=== PATIENT | male | born 2000 | race Caucasian/White ===

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

== ENCOUNTER 2023-05-03 07:54 | Emergency (ER) | payer OTHER ==
[~2023-05-03] VITALS: Ht 177.8 cm; Wt 89.9 kg
[2023-05-03 07:55] VITALS: BP 115/62; TEMP 97.7; O2SAT 100
[2023-05-03] MEDS: CEPHALEXIN 500 MG CAP PO ONE (08:40)
[2023-05-03] MEDS: LIDOCAINE 1% MDV 20ML VIAL SC ONE (08:53)
[2023-05-03] MEDS: BOOSTRIX VACCINE (TETANUS/DIPHTH/ACEL. PERTUSSIS) 0.5ML SYR IM ONE (08:54)
[2023-05-03] MEDS: SODIUM CHLORIDE NASAL 0.65% SPRAY BTL (OCEAN) STA (10:16)
[2023-05-03] MEDS ORDERED: SODI88SP NARES (10:19)
[2023-05-03] MEDS ORDERED: CEPH500C PO (10:19)
[2023-05-03] MEDS: NEOSPORIN OINT 0.9 GM PKT TOP ONE (11:03)
== END 2023-05-03 11:16 | disposition home or self-care (01) ==
LOC: M ED 07:54
DX: S01.21XA Laceration without foreign body of nose, initial encounter (principal); Y99.0 Civilian activity done for income or pay; Y92.9 Unspecified place or not applicable; Y93.9 Activity, unspecified; W22.8XXA Striking against or struck by other objects, initial encounter; Z23 Encounter for immunization; Z79.2 Long term (current) use of antibiotics

== ENCOUNTER 2023-05-10 16:03 | Emergency (ER) | payer OTHER ==
[~2023-05-10] VITALS: Ht 177.8 cm; Wt 89.0 kg
[~2023-05-10 16:03] MED LIST: CEPH500C PO; SODI88SP NARES
[2023-05-10 16:04] VITALS: BP 135/82; TEMP 98.1; O2SAT 99
== END 2023-05-10 18:36 | disposition home or self-care (01) ==
LOC: M ED 16:03
DX: Z48.02 Encounter for removal of sutures (principal)

== ENCOUNTER → 2023-10-05 | Outpatient (REF) | payer OTHER | LOC: M LAB REF 10:21 | PROVIDERS: ATTEND Physician Assistant | DX: J02.9 Acute pharyngitis, unspecified (principal) ==